=== PATIENT | male | born 1980 | race Caucasian/White ===

== ENCOUNTER 2023-12-03 12:13 | Emergency (ER) | payer OTHER ==
[~2023-12-03] VITALS: Ht 177.8 cm; Wt 84.1 kg
[2023-12-03 13:17] LABS: ALBUMIN 3.8 G/DL (3.4-5.0); ANION GAP 3 (8-16); BLOOD UREA NITROGEN 19 MG/DL (7-18); BUN/CREATININE RATIO 20.2 (10.0-20.0); CALCIUM 8.7 MG/DL (8.5-10.1); CHLORIDE 103 MMOL/L (99-107); CREATININE 0.94 MG/DL (0.60-1.10); GLUCOSE 110 MG/DL (70-104); POTASSIUM 3.7 MMOL/L (3.5-5.1); PRO BRAIN NATRIURETIC PEPTIDE 55 PG/ML (0-125); SODIUM 134 MMOL/L (135-145); TOTAL CARBON DIOXIDE 28.1 MMOL/L (24-32); eCRCL 102 ML/MIN; eGFR 87 ML/MIN
[2023-12-03 13:33] LABS: BASOPHILS # (AUTO) 0.1 X10'3 (0-0.2); BASOPHILS % (AUTO) 0.9 % (0-1); EOSINOPHILS # (AUTO) 0.2 X10'3 (0-0.9); EOSINOPHILS % (AUTO) 1.9 % (0-6); HEMATOCRIT 47.4 % (42.0-52.0); HEMOGLOBIN 16.8 g/dl (14.0-17.9); LYMPHOCYTES # (AUTO) 0.6 X10'3 (1.1-4.8); LYMPHOCYTES % (AUTO) 5.7 % (21-51); MEAN CORPUSCULAR HEMOGLOBIN 30.2 PG (27.0-31.0); MEAN CORPUSCULAR HGB CONC 35.4 g/dL (33.0-36.5); MEAN CORPUSCULAR VOLUME 85.2 FL (78-98); MEAN PLATELET VOLUME 9.1 FL (7.4-10.4); MONOCYTES # (AUTO) 0.7 X10'3 (0-0.9); MONOCYTES % (AUTO) 6.9 % (2-12); NEUTROPHILS # (AUTO) 9.1 X10'3 (1.8-7.7); NEUTROPHILS % (AUTO) 84.6 % (42-75); PLATELET COUNT 322 X10'3 (140-440); RED BLOOD COUNT 5.56 X10'6 (4.70-6.10); WHITE BLOOD COUNT 10.8 X10'3 (4.5-11.0)
[2023-12-03] MEDS: normal saline 1000ml 1,000 ML IV STA (14:38)
[2023-12-03] MEDS: ibuprofen tablet 400 MG TABLET PO STA (14:38)
[2023-12-03 15:34] VITALS: BP 131/70; PULSE 87; RESP 16; TEMP 97.8; O2SAT 98
== END 2023-12-03 15:39 | disposition home or self-care (01) ==
LOC: ER 12:13 → EEVIPCON 12:13 → ER 15:39
DX: E86.0 Dehydration (principal); R06.02 Shortness of breath; R11.0 Nausea; R07.89 Other chest pain
CPT/HCPCS: 36415; 71045; 80048; 83880; 84484; 85025; 93005; 96360; 99285; J7030